=== PATIENT | female | born 1955 | race Hispanic/Latino ===

== ENCOUNTER → 2018-12-08 | Outpatient (CLI) | payer MEDICAID ==
[~2018-12-08] MED LIST: VALS80TA2 PO
== END | disposition home or self-care (01) ==
LOC: RAH 09:03
PROVIDERS: ATTEND Family Medicine
DX: Z12.31 Encounter for screening mammogram for malignant neoplasm of breast (principal)
CPT/HCPCS: 77067

== ENCOUNTER → 2019-12-09 | Outpatient (CLI) | payer MEDICAID | END | disposition home or self-care (01) | LOC: RAH 11:13 | PROVIDERS: ATTEND Internal Medicine Infectious Disease | DX: Z12.31 Encounter for screening mammogram for malignant neoplasm of breast (principal) | CPT/HCPCS: 77067 ==

== ENCOUNTER → 2022-10-09 | Outpatient (CLI) | payer OTHER, MEDICAID ==
[~2022-10-09] MED LIST changes: +IOHEXOL-350 50ML VIAL IV ONE
== END | disposition home or self-care (01) ==
LOC: RAH 10:58
PROVIDERS: ATTEND Family Medicine
DX: S09.90XA Unspecified injury of head, initial encounter (principal); R43.0 Anosmia; G44.309 Post-traumatic headache, unspecified, not intractable; X58.XXXA Exposure to other specified factors, initial encounter; Y93.89 Activity, other specified; Y92.89 Other specified places as the place of occurrence of the external cause; Y99.8 Other external cause status
CPT/HCPCS: 70470; Q9967

== ENCOUNTER 2023-12-25 02:46 | Emergency (ER) | payer OTHER, MEDICARE ==
[~2023-12-25] VITALS: Ht 160 cm; Wt 70.8 kg
[~2023-12-25 02:46] MED LIST changes: -IOHEXOL-350 50ML VIAL IV ONE
[2023-12-25] MEDS: ONDANSETRON 4MG INJ IVP ONE (03:26)
[2023-12-25 03:33] LABS: APPEARANCE,URINE CLEAR (CLEAR); BILIRUBIN,URINE NEGATIVE (NEGATIVE); COLOR,URINE LIGHT-YELLOW (YELLOW); GLUCOSE, URINE (UA) 50 mg/dL (NEGATIVE); KETONES,URINE NEGATIVE (NEGATIVE); LEUKOCYTE ESTERASE ,URINE 250 Leu/uL (NEGATIVE); NITRATE,URINE NEGATIVE (NEGATIVE); OCCULT BLOOD,URINE NEGATIVE (NEGATIVE); PROTEIN,URINE NEGATIVE (NEGATIVE); UROBILINOGEN,URINE 0.2 mg/dL (0.2-1.0)
[2023-12-25 03:36] LABS: ADD UA MICROSCOPIC YES
[2023-12-25 03:37] LABS: BASOPHILS # (AUTO) 0.02 K/uL (0.00-0.20); BASOPHILS % (AUTO) 0.2 % (0.0-5.0); EOSINOPHILS # (AUTO) 0.05 K/uL (0.00-0.70); EOSINOPHILS % (AUTO) 0.5 % (0.0-8.0); HEMATOCRIT 45.3 % (36-48); IMMATURE GRANULOCYTE ABSOLUTE 0.04 K/uL (0-1); LYMPHOCYTES # (AUTO) 1.3 K/uL (1.0-4.8); LYMPHOCYTES % (AUTO) 12.9 % (21.0-51.0); MEAN CORPUSCULAR HEMOGLOBIN 31.4 pg (27.0-33.0); MEAN CORPUSCULAR HGB CONC 34.9 g/dL (32.0-36.0); MEAN CORPUSCULAR VOLUME 90.1 fL (79-99); MONOCYTES # (AUTO) 0.5 K/uL (0.1-1.0); MONOCYTES % (AUTO) 4.4 % (3.0-13.0); NEUTROPHILS # (AUTO) 8.4 K/uL (1.8-7.7); NEUTROPHILS % (AUTO) 81.6 % (40.0-77.0); PLATELET COUNT (AUTO) 262 K/uL (130-400); RED BLOOD CELL COUNT(AUTO) 5.03 MIL/uL (4.00-5.50); WHITE BLOOD COUNT (AUTO) 10.3 K/uL (4.8-10.8)
[2023-12-25 03:38] LABS: NON-SQUAMOUS EPITHELIAL CELL 2 /HPF (0-2); SQUAMOUS EPITHELIAL CELL,UR FEW /HPF (0-2)
[2023-12-25] MEDS: ONDANSETRON 4MG INJ ONE (04:09)
[2023-12-25] MEDS: KETOROLAC 15MG/ML VIAL (15MG/ML) IV ONE (04:21)
[2023-12-25] MEDS: DICYCLOMINE 20MG (10MG/ML) AMP IM STA (04:21)
[2023-12-25] MEDS ORDERED: DICY20TA2 PO (04:36)
[2023-12-25] MEDS ORDERED: IBUP-1493 PO (04:36)
[2023-12-25 04:50] LABS: ALBUMIN 3.3 g/dL (3.5-5.0); BILIRUBIN,TOTAL 0.5 mg/dL (0.2-1.0); CREATININE 0.8 mg/dL (0.5-1.5); POTASSIUM 3.5 mmol/L (3.5-5.1)
[2023-12-25 04:56] VITALS: BP 136/72; PULSE 78; RESP 16; O2SAT 98
== END 2023-12-25 05:11 | disposition home or self-care (01) ==
LOC: EDH 02:46
DX: K80.20 Calculus of gallbladder without cholecystitis without obstruction (principal); E11.9 Type 2 diabetes mellitus without complications; I10 Essential (primary) hypertension; Z79.899 Other long term (current) drug therapy; Z88.8 Allergy status to other drugs, medicaments and biological substances; Z90.710 Acquired absence of both cervix and uterus; Z91.041 Radiographic dye allergy status
CPT/HCPCS: 99284; 96374; 96375; 84484; 80053; 83690; 85025; 87088; 81001; 36415; 96372; 93005; J2405; J0500; J1885

== ENCOUNTER → 2024-08-19 | Outpatient (CLI) | payer OTHER, MEDICARE ==
[~2024-08-19] MED LIST changes: +DICY20TA2 PO; +IBUP-1493 PO
== END | disposition home or self-care (01) ==
LOC: RAH 09:18
PROVIDERS: ATTEND Internal Medicine Gastroenterology
DX: K44.9 Diaphragmatic hernia without obstruction or gangrene (principal); K21.9 Gastro-esophageal reflux disease without esophagitis
CPT/HCPCS: 74240

== ENCOUNTER 2025-01-12 19:46 | Emergency (ER) | payer OTHER, MEDICARE ==
[~2025-01-12] VITALS: Ht 154.9 cm; Wt 70.3 kg
[2025-01-12] MEDS ORDERED: hydrALAZine 20MG/ML VIAL IV ONE (20:00)
[2025-01-12] MEDS: teTANUS/diphthERIA TOXOID [ADULT] 0.5 ML VIAL IM ONE (20:29)
--- NOTE | 2025-01-12 20:56 | ERN ---
ED Note History of Present Illness Stated Complaint: STEPPED ON NAIL Chief Complaint: FOOT INJURY/PAIN Time Seen by MD: 19:55 Dictation: This is a 69-year-old female who was working in the backyard and accidentally stepped on a metal nail which punctured the plantar surface of her right foot. She had severe pain and she came into the ER for evaluation. This happened 2 hours prior to the presentation. No history of any fall loss of consciousness lacerations bleeding or deformity. Temperature 98.3 pulse 85 respirations 20 initial blood pressure was 209/109 and 221/90 pulse oximetry 98% on room air Her chronic medical problems include diabetes mellitus and hypertension and history of cholelithiasis Allergies: Coded Allergies: iodine (Unverified Allergy, Unknown, 12/25/23) Home Meds Active Scripts Ibuprofen (Motrin/Advil) 800 Mg Tab, 800 MG PO TIDP PRN for PAIN, #30 TAB Prov:SHARAD FERNANDES MD 12/25/23 Dicyclomine HCl (Bentyl) 20 Mg Tab, 20 MG PO TIDP PRN for PAIN, #30 TAB Prov:SHARAD FERNANDES MD 12/25/23 Reported Medications Valsartan (Diovan) 80 Mg Tablet, 80 MG PO DAILY, TAB 07/03/16 Past Medical History Past Medical History: Diabetes-Type II, Hypertension, Other Additional Past Medical Hx: HX OF GALLSTONES Surgical History: Hysterectomy, None Family History: Negative Social History: Negative, Lives with family History: Not Applicable RN Note Reviewed/Agreed w/PFSH: Yes Review of System Dictation Constitutional: Negative for fever,chills, and weight loss Eyes: Negative for injury, pain,redness, and discharge ENT: Negative for injury,pain or swelling Cardiovascular: Negative for chest pain, palpitations, and edema Respiratory: Negative for shortness of breath, cough, and wheezing, Abdomen/GI: Negative for abdominal pain, nausea, vomiting, diarrhea, and constipation Back: Negative for injury and pain : Negative for injury, bleeding and discharge MS/Extremity: Negative for injury and deformity pain in the right foot on the plantar surface 3 cm below the toes at the site of the metal nail puncture wound Skin: Negative for rash, and discoloration Neuro: Negative for headache, weakness, numbness, tingling, and seizure Psych: Negative for suicide ideation, homicidal ideation, and hallucinations Initial Vital Sign VS Vital Signs Date Time Temp Pulse Resp B/P (MAP) Pulse Ox O2 Delivery O2 Flow Rate FiO2 01/12/25 19:47 98.2 85 20 221/90 98 Room Air 01/12/25 20:14 0 21 Physical Exam Dictation General: awake, alert, NAD Head/Face: Normocephalic, atraumatic Eyes: PERRL, EOMI, vision at baseline ENT: oral cavity clear, TMs clear, no signs of infection Neck: Trachea midline, supple, no nuchal rigidity Cardiovascular: RRR, normal S1/S2, No MRGs, no JVD Respiratory: CTAB, no respiratory distress, No rales or wheezes Abdomen: Soft, non-tender, non-distended, normal bowel sounds, no guarding or rebound. Skin: Warm, dry, normal turgor, no rash MS/Extremity: Pulses equal, no cyanosis, neurovascular intact, FROM right foot plantar surface very small entrance wound of the nail puncture. No bleeding no drainage or necrosis. Tenderness to palpation Neuro: COAx4, GCS 15, strength 5/5, CN 2-12 intact, normal cerebellar exam, normal gait, Psych: Normal behavior, mood, and affect normal Extremities-trace edema without any palpable cords, Homans sign is negative Results (Laboratory/Radiology) Labs Reviewed?: Yes X-RAY Comment: REASON: injury with a nail piercing the plantar surface- ORDERING PHYSICIAN: SANDRA COLE MD PROCEDURE: FT 3VW RT - FOOT COMP 3+VWS RT FOOT COMP 3+VWS RT INDICATION: injury with a nail piercing the plantar surface- TECHNIQUE: FOOT COMP 3+VWS RT. FINDINGS AND IMPRESSION: No displaced fracture or dislocation is seen. Correlate clinically. There is no joint effusion or soft tissue swelling. No radiopaque foreign body is identified. DICTATED BY: SISI WEBSTER MD DATE: 01/12/252113 ELECTRONICALLY SIGNED BY: SISI WEBSTER MD DATE: 01/12/25 ED Course ED Course Orders Procedure Category Date Status Time Tetanus,Diphtheria PHA 01/12/25 Complete Tox [Adult] (Diphther 20:00 Hydralazine 20mg Inj PHA 01/12/25 Complete (Apresoline 20mg In 20:00 Foot Comp 3+Vws Rt RAD 01/12/25 Resulted 20:48 Current Medications Medications (Trade) Dose Ordered Sig/Massimo Route PRN Reason Start Time Stop Time Status Last Admin Dose Admin Hydralazine HCl (APRESOLine 20MG INJ) 10 mg ONCE ONCE IV 01/12/25 20:00 01/12/25 20:01 DC Tetanus/ Diphtheria Toxoids Adsorbed (DiphthERIA-teTANUS TOXOID [ADULT]/ DECAVAC) 0.5 ml ONCE ONCE IM 01/12/25 20:00 01/12/25 20:01 DC 01/12/25 20:29 Vital Signs Date Time Temp Pulse Resp B/P (MAP) Pulse Ox O2 Delivery O2 Flow Rate FiO2 01/12/25 20:14 74 18 /189 98 Room Air* 0 21 01/12/25 19:47 98.2 85 20 221/90 98 Room Air We will perform imaging and administer medications according to the patient's complaint. Once the results are available, will review and personally interpreted the labs to rule out any acute life-threatening emergency the trach require immediate intervention and treatment. I will then re-evaluate the patient after treatment and diagnostic exams have return to determine whether the patient requires any further testing, can safely be discharged home or need further admission to hospital for additional treatment and evaluation. Tetanus injection and x-ray of the right foot to evaluate for any retained metal fragments as well as fracture of the foot bones Medical Decision Making MDM MDM: Differential diagnosis: Puncture wound to the plantar surface of the skin, injury to the ligaments, muscle, fracture of any bones, retained foreign body Rationale: Tests considered and ordered secondary to shared decision making include: Previous outside records reviewed: Old ER visits. Risk of complication and/or morbidity or mortality of patient management: None Medications-Per medication reconciliation Need for hospitalization: Patient does not meet criteria for hospitalization. Need for emergency major/minor surgery: No There are no social concerns with this patient. Prescription drug management Prescriptions will include symptomatic care Patient's prior external medical records from other ER visits were reviewed by me as indicated. Prior testing and results from previous visits were reviewed. Prior tests were taken into account with medical decision making and resource utilization, independent historian/historians were used to obtain complete medical history. I independently interpreted the test that were performed, results were reviewed by me and considered findings on radiology if ordered. Medical management and examination interpretation discussions were had by me with other qualified healthcare professionals as indicated for the patient's care. Problem List Problem List: (1) Puncture wound of right foot (2) Puncture wound of skin from metal nail DX & DISP Disposition: Discharge Departure Impression: Primary Impression: Puncture wound of skin from metal nail Additional Impression: Puncture wound of right foot Condition: Stable Scripts Cephalexin (Cephalexin) 500 Mg Tablet 1 TAB PO BID for 7 Days, #14 TAB 0 Refills Prov: SANDRA COLE MD 01/12/25 Additional Instructions: Patient and the caregiver have been informed of all the diagnostic tests and the imaging conducted during the today's visit to the emergency room and has verbalized understanding of the results I have personally reviewed and interpreted all diagnostic exams performed here in the ER today as well as the vital signs documented by the nursing staff. The patient is now being discharged to home and should follow up with the primary care physician or the specialist as directed by the ER staff. Follow-up with primary care provider in 1 to 2 days. Take medications as directed here in the emergency room. Okay to continue home medications unless otherwise discussed during your visit in the emergency room today. Return to your nearest emergency room if symptoms worsen or if there is no improvement. Call 911 if you need immediate assistance. Take Tylenol or Motrin [id number] as needed and if no contraindications are present. Increase oral hydration. A wound culture or urine culture was ordered here in the emergency room department please follow-up with primary care provider and advise them to get repeat ports from our facility. If you had any Se wrap/splints that were applied here, please do not remove them until you see your primary care or specialty. Referrals: BAIRON ORTIZ M.D. (PCP) SANDRA COLE MD Jan 12, 2025 20:56
--- NOTE | 2025-01-12 21:16 | HMCIMG ---
FOOT COMP 3+VWS RT INDICATION: injury with a nail piercing the plantar surface- TECHNIQUE: FOOT COMP 3+VWS RT. FINDINGS AND IMPRESSION: No displaced fracture or dislocation is seen. Correlate clinically. There is no joint effusion or soft tissue swelling. No radiopaque foreign body is identified.
[2025-01-12] MEDS ORDERED: CEPH500T PO (21:36)
[2025-01-12 21:57] VITALS: BP 143/65; PULSE 71; RESP 18; TEMP 98.2; O2SAT 98
== END 2025-01-12 21:58 | disposition home or self-care (01) ==
LOC: EDH 19:46
DX: S91.331A Puncture wound without foreign body, right foot, initial encounter (principal); E11.9 Type 2 diabetes mellitus without complications; I10 Essential (primary) hypertension; Z79.899 Other long term (current) drug therapy; Z88.8 Allergy status to other drugs, medicaments and biological substances; Z90.710 Acquired absence of both cervix and uterus; Z91.041 Radiographic dye allergy status; W22.8XXA Striking against or struck by other objects, initial encounter; Y93.89 Activity, other specified; Y92.89 Other specified places as the place of occurrence of the external cause; Y99.8 Other external cause status
CPT/HCPCS: 73630; 90471; 90714; 99283; J0360